=== PATIENT | female | born 1960 | race Caucasian/White ===

== ENCOUNTER → 2017-09-20 | Outpatient (CLI) | payer OTHER ==
[~2017-09-20] MED LIST: ASPIRIN81 M1 PO; BACTRIM DS 8001 TAB PO; KEFLEX500 M1 PO; LISINOPRIL5 MG PO; MOTRIN100 M1 PO; NAPROXEN500 M1 PO
== END | disposition home or self-care (01) ==
LOC: RAD 12:36
DX: R52 Pain, unspecified (principal)

== ENCOUNTER → 2018-12-22 | Outpatient (CLI) | payer OTHER | END | disposition home or self-care (01) | LOC: US 16:49 | DX: N95.0 Postmenopausal bleeding (principal) ==

== ENCOUNTER → 2018-12-23 | Outpatient (CLI) | payer OTHER | END | disposition home or self-care (01) | LOC: MAMMO 02:22 | DX: Z12.31 Encounter for screening mammogram for malignant neoplasm of breast (principal) ==

== ENCOUNTER → 2022-07-24 | Outpatient (CLI) | payer OTHER | END | disposition home or self-care (01) | LOC: LAB 15:35 | PROVIDERS: ATTEND Internal Medicine | DX: A69.20 Lyme disease, unspecified (principal) ==

== ENCOUNTER → 2022-09-21 | Outpatient (CLI) | payer OTHER | END | disposition home or self-care (01) | LOC: US 09-20 08:30 → RAD 14:00 | PROVIDERS: ATTEND Internal Medicine | DX: Z78.0 Asymptomatic menopausal state (principal) ==

== ENCOUNTER → 2022-10-04 | Outpatient (CLI) | payer OTHER | END | disposition home or self-care (01) | LOC: RAD 08-27 10:30 → CARD 08-27 11:30 | PROVIDERS: ATTEND Internal Medicine | DX: I65.23 Occlusion and stenosis of bilateral carotid arteries (principal); I35.8 Other nonrheumatic aortic valve disorders; I51.7 Cardiomegaly; R42 Dizziness and giddiness ==

== ENCOUNTER → 2023-09-23 | Outpatient (CLI) | payer MEDICARE | LOC: MAMMO 00:45 | PROVIDERS: ATTEND Internal Medicine | DX: Z12.31 Encounter for screening mammogram for malignant neoplasm of breast (principal) ==